=== PATIENT | female | born 1995 | race Caucasian/White ===

== ENCOUNTER 2017-04-16 15:17 | Emergency (ER) | payer MEDICAID ==
[~2017-04-16] VITALS: Ht 167.6 cm; Wt 83.0 kg
[2017-04-16 15:22] VITALS: BP 105/65
[2017-04-16] MEDS ORDERED: DIPHTHERIA-TETANUS ADULT 0.5ML IM-VACC ONE (16:00)
[2017-04-16 16:08] LABS: BLOOD UREA NITROGEN 8 mg/dL (7-18)
[2017-04-16] MEDS ORDERED: PLEASE ENTER ALLERGIES MC SCH ×2 (17:04)
[2017-04-16] MEDS ORDERED: LIDOCAINE 1%, 20ML ONE (17:24)
[2017-04-16] MEDS ORDERED: LIDOCAINE 1%, 20ML INFIL ONE (17:30)
[2017-04-16] MEDS ORDERED: DIPH,PERTUSS(ACELL),TET VAC/PF 0.5 ML IM-VACC ONE (17:54)
[2017-04-16] MEDS ORDERED: BACITRACIN ZINC OINT 500U/GM, 0.9 GM ONE (18:01)
== END 2017-04-16 18:22 | disposition home or self-care (01) ==
LOC: ED 18:00
DX: S01.01XA Laceration without foreign body of scalp, initial encounter (principal); G40.919 Epilepsy, unspecified, intractable, without status epilepticus; X58.XXXA Exposure to other specified factors, initial encounter; Y93.89 Activity, other specified; Y92.89 Other specified places as the place of occurrence of the external cause; Y99.8 Other external cause status
CPT/HCPCS: 12004; 36415; 70450; 80048; 82040; 85025; 90471; 90714; 93005